=== PATIENT | male | born 1965 | race Two or more races ===

== ENCOUNTER 2020-07-02 11:09 | Emergency (ER) | payer OTHER ==
[~2020-07-02] VITALS: Ht 190.5 cm; Wt 122.5 kg
[2020-07-02 13:25] LABS: Basophils # (auto) 0 10 ^3/uL (0-0.2); Basophils % (auto) 0.3 % (0.0-2.0); Eosinophils # (auto) 0.1 10 ^3/uL (0-0.8); Eosinophils % (auto) 1.4 % (0.0-7.0); Hematocrit 45.6 % (41.0-53.0); Hemoglobin 15.9 g/dL (13.5-17.5); Lymphocytes # (auto) 1.6 10 ^3/uL (0.4-5.4); Lymphocytes % (auto) 24.8 % (10.0-50.0); Mean Corpuscular Hemoglobin 31.9 pg (28.0-32.0); Mean Corpuscular Hgb Conc. 34.8 g/dL (32.0-36.0); Mean Corpuscular Volume 91.8 fL (80.0-100.0); Monocytes # (auto) 0.5 10 ^3/uL (0-1.3); Neutrophils # (auto) 4.4 10 ^3/uL (1.6-8.6); Neutrophils % (auto) 66.5 % (37.0-80.0); Nucleated Red Blood Cells % 0.1 %; Red Blood Cells 4.97 10^6/uL (4.5-5.90); Red Cell Distribution Width 13.1 % (11.8-14.3); White Blood Cell 6.6 10^3/uL (4.4-10.8)
[2020-07-02 13:41] LABS: Albumin 4.1 g/dL (3.4-5.0); Anion Gap 4 (5-15); Blood Urea Nitrogen 13 mg/dL (7-18); Carbon Dioxide 27 mmol/L (21-32); Chloride 110 mmol/L (98-107); Glucose 103 mg/dL (74-106); Magnesium 2.5 mg/dL (1.6-2.6); Sodium 141 mmol/L (136-145)
[2020-07-02 13:45] LABS: Alanine Aminotransferase 65 U/L (16-61); Alkaline Phosphatase 121 U/L (45-117); Aspartate Aminotransferase 34 U/L (15-37); BUN/Creatinine Ratio 14.4; Bilirubin, Total 1.2 mg/dL (0.2-1.0); Calcium 9.6 mg/dL (8.5-10.1); GFR African American 112 mL/min; GFR Non-African American 93 mL/min; Total Protein 7.4 g/dL (6.4-8.2)
[2020-07-02 13:51] LABS: INR 1.07 (0.9-1.15); Partial Thromboplastin Time 27.9 sec (23.0-31.2)
[2020-07-02] MEDS ORDERED: IOHEXOL 350 MG/ML 100ML IJ ONE (15:23)
[2020-07-03 12:16] VITALS: BP 144/86
== END 2020-07-03 13:49 | disposition short-term general hospital (02) ==
LOC: ER 11:09 → EDBD 11:09 → ER 07-03 13:49
DX: R07.89 Other chest pain (principal); R79.89 Other specified abnormal findings of blood chemistry; Q44.6 Cystic disease of liver; R51.9 Headache, unspecified; E78.5 Hyperlipidemia, unspecified; I10 Essential (primary) hypertension; R00.1 Bradycardia, unspecified; Z98.890 Other specified postprocedural states; Z20.822 Contact with and (suspected) exposure to COVID-19
CPT/HCPCS: 36415; 70450; 71045; 71275; 80053; 82962; 83735; 83880; 84443; 84484; 85025; 85379; 85610; 85730; 87426; 93005; 99285; Q9967